=== PATIENT | male | born 1975 ===

== ENCOUNTER 2021-02-09 19:59 | Emergency (ER) | payer SELFPAY ==
[~2021-02-09] VITALS: Ht 172.7 cm; Wt 80.0 kg
[2021-02-09] MEDS ORDERED: NEOSPORIN OINT. PKT 1 PACKET ONE ×2 (20:43→20:50)
[2021-02-09 20:55] LABS: BASOPHILS % (AUTO) 1 % (0-1); EOSINOPHILS % (AUTO) 1 % (1-7); LYMPHOCYTES % (AUTO) 12 % (22-44); MEAN CORPUSCULAR HEMOGLOBIN 30.5 pg (27.5-34.5); MEAN CORPUSCULAR HGB CONC 34.1 g/dL (33.2-36.2); MEAN PLATELET VOLUME 8.1 fL (7.4-10.4); MONOCYTES % (AUTO) 6 % (2-9); NEUTROPHILS % (AUTO) 81 % (42-75); PLATELET COUNT 236 x10^3/uL (130-400); RED BLOOD COUNT 4.63 x10^6/uL (4.38-5.82); RED CELL DISTRIBUTION WIDTH 12.9 % (9.4-14.8)
[2021-02-09 20:59] LABS: MD NO
[2021-02-09 21:04] LABS: ANION GAP 11 mmol/L (5-15); CALCIUM 9.3 mg/dL (8.5-10.1); CHLORIDE 104 mmol/L (98-107)
[2021-02-09 22:29] VITALS: BP 119/69
== END 2021-02-09 22:42 | disposition home or self-care (01) ==
LOC: ED 21:48
DX: R10.84 Generalized abdominal pain (principal); M54.5 Low back pain; Z72.9 Problem related to lifestyle, unspecified
CPT/HCPCS: 36415; 71045; 80048; 85025; 99284

== ENCOUNTER 2021-07-01 03:19 | Inpatient (IN) | payer OTHER ==
[~2021-07-01] VITALS: Ht 172.7 cm; Wt 79.2 kg
--- NOTE | 2021-07-01 03:35 | NUR ---
HANNAH FROM [facility]. EMS REPORTS PATIENT HAS BEEN FEELING SICK FOR 2-3 DAYS NOW WITH FEVER AND BODY ACHES. PATIENT REPORTS HE HAS A COUGH WHICH PRODUCES A YELLOW/GREEN SPUTUM, HE HAS HAD A FEVER OFF AND ON, + N/V/D, BODY ACHES. PATIENT IS VACCINATED FOR COVID. UNKOWN IF HE HAS HAD AN EXPOSURE.
[2021-07-01] MEDS ORDERED: SODIUM CHLORIDE FLUSH 10ML SYR IVF ONE (04:00)
[2021-07-01] MEDS ORDERED: SODIUM CHLORIDE 0.9% 1,000ML IVBOLUS ONE (04:00)
--- NOTE | 2021-07-01 04:09 | NUR ---
RA SATURATION DROP TO 88-89% PATIENT PLACED ON 2L OXYGEN VIA NC
[2021-07-01] MEDS ORDERED: PLEASE ENTER ALLERGIES MC SCH (05:00)
[2021-07-01] MEDS ORDERED: CEFTRIAXONE 1,000 MG in DEXTROSE 5% 50 ML IVPB ONE (05:00)
[2021-07-01] MEDS ORDERED: AZITHROMYCIN 500 MG in SODIUM CHLORIDE 0.9% 250 ML IV ONE (05:00)
[2021-07-01 05:23] LABS: BASOPHILS % (AUTO) 0 % (0-1); EOSINOPHILS % (AUTO) 0 % (1-7); LYMPHOCYTES % (AUTO) 5 % (22-44); MEAN CORPUSCULAR HEMOGLOBIN 29.5 pg (27.5-34.5); MEAN CORPUSCULAR HGB CONC 33.8 g/dL (33.2-36.2); MEAN PLATELET VOLUME 8.4 fL (7.4-10.4); MONOCYTES % (AUTO) 4 % (2-9); NEUTROPHILS % (AUTO) 91 % (42-75); PLATELET COUNT 132 x10^3/uL (130-400); RED BLOOD COUNT 4.89 x10^6/uL (4.38-5.82); RED CELL DISTRIBUTION WIDTH 12.9 % (9.4-14.8)
[2021-07-01 05:33] LABS: ANION GAP 11 mmol/L (5-15); CHLORIDE 100 mmol/L (98-107); CREATININE 1.71 mg/dL (0.7-1.3)
--- NOTE | 2021-07-01 06:38 | NUR ---
Pt to be admitted to MEDICAL, room 368. Report called to WILLIAN.
--- NOTE | 2021-07-01 06:54 | NUR ---
GAVE REPORT TO AVELINA AHMADI
[2021-07-01] MEDS ORDERED: ALBUTEROL HFA 90 MCG/SPRAY INH PRN (07:00)
[2021-07-01] MEDS ORDERED: POLYETHYLENE GLYCOL 17 GM PACKET PO PRN (07:00)
[2021-07-01] MEDS ORDERED: ONDANSETRON 2MG/ML, 2ML IVPush PRN (07:00)
[2021-07-01] MEDS ORDERED: SENNA/DOCUSATE TABLET PO PRN (07:00)
[2021-07-01] MEDS ORDERED: ONDANSETRON ODT 4 MG PO PRN (07:00)
[2021-07-01] MEDS ORDERED: VANCOMYCIN PER PHARMACY MC PRN (07:00)
[2021-07-01] MEDS ORDERED: ACETAMINOPHEN 325 MG TABLET PO PRN (07:00)
[2021-07-01 07:10] LABS: HCT (SEDRATE) 42.7 % (39.2-51.8)
[2021-07-01 07:24] LABS: ALANINE AMINOTRANSFERASE 21 U/L (12-78); ALBUMIN 2.9 g/dL (3.4-5.0); BILIRUBIN, DIRECT 0.2 mg/dL (0.1-0.2)
[2021-07-01 07:30] LABS: ALKALINE PHOSPHATASE 83 U/L (45-117); BILIRUBIN,INDIRECT 0.4 mg/dL (0.0-2.0); BILIRUBIN,TOTAL 0.6 mg/dL (0.2-1.0); TOTAL PROTEIN 7.8 g/dL (6.4-8.2)
[2021-07-01 07:49] LABS: C-REACTIVE PROTEIN, QUANT > 19.00 mg/dL (0.02-0.49)
[2021-07-01] MEDS ORDERED: PHARMACOKINETIC MONITORING MC PRN (08:00)
[2021-07-01] MEDS ORDERED: VANCOMYCIN 2,000 MG in SODIUM CHLORIDE 0.9% 500 ML IV ONE (08:00)
[2021-07-01 08:15] VITALS: BP 102/66
[2021-07-01] MEDS ORDERED: DEXAMETHASONE 4 MG/ML, 1ML ONE (10:08)
[2021-07-01] MEDS: AZITHROMYCIN 500 MG TABLET PO SCH (10:21)
[2021-07-01] MEDS: ZINC SULFATE 220 MG CAPSULE PO SCH (10:21)
[2021-07-01] MEDS: THIAMINE 100MG TABLET PO SCH (10:22)
[2021-07-01] MEDS: DEXAMETHASONE 4 MG/ML, 5ML IVPush SCH (10:22)
[2021-07-01] MEDS: CHOLECALCIFEROL 5,000u TAB PO SCH (10:22)
[2021-07-01] MEDS: HEPARIN 5,000 UNITS/ML, 1ML SQ SCH ×2 (10:26→16:34)
[2021-07-01] MEDS: D5%-0.45NACL+KCL 20MEQ 1,000 ML IV SCH ×2 (10:39→20:04)
[2021-07-01] MEDS: CEFTRIAXONE 1,000 MG in DEXTROSE 5% 50 ML IVPB SCH (10:40)
[2021-07-01] MEDS: ASCORBIC ACID 500 MG TABLET PO SCH ×2 (10:40→16:34)
[2021-07-01 12:10] LABS: AMPHETAMINE SCREEN, URINE Negative (Negative); BARBITURATE SCREEN, URINE Negative (Negative); BENZODIAZEPINE SCREEN, URINE Negative (Negative); CANNABINOID SCREEN, URINE Negative (Negative); COCAINE SCREEN, URINE Negative (Negative); METHADONE SCREEN, URINE Negative (Negative); OPIATE SCREEN, URINE Negative (Negative)
[2021-07-01 12:43] VITALS: BP 106/66
[2021-07-01 19:52] VITALS: BP 116/68
[2021-07-01] MEDS: MELATONIN 5 MG TABLET PO SCH (20:04)
[2021-07-02 01:34] VITALS: BP 106/65
[2021-07-02] MEDS ORDERED: VANCOMYCIN 1,600 MG in SODIUM CHLORIDE 0.9% 250 ML IV SCH (02:00)
[2021-07-02] MEDS: HEPARIN 5,000 UNITS/ML, 1ML SQ SCH ×2 (02:01→08:31)
[2021-07-02 08:18] LABS: BASOPHILS % (AUTO) 0 % (0-1); EOSINOPHILS % (AUTO) 0 % (1-7); LYMPHOCYTES % (AUTO) 5 % (22-44); MEAN CORPUSCULAR HEMOGLOBIN 29.7 pg (27.5-34.5); MEAN CORPUSCULAR HGB CONC 33.9 g/dL (33.2-36.2); MEAN PLATELET VOLUME 8.7 fL (7.4-10.4); MONOCYTES % (AUTO) 6 % (2-9); NEUTROPHILS % (AUTO) 89 % (42-75); PLATELET COUNT 136 x10^3/uL (130-400); RED BLOOD COUNT 4.56 x10^6/uL (4.38-5.82); RED CELL DISTRIBUTION WIDTH 12.9 % (9.4-14.8)
[2021-07-02] MEDS ORDERED: DEXAMETHASONE 4 MG/ML, 1ML ONE (08:24)
[2021-07-02 08:26] LABS: ALANINE AMINOTRANSFERASE 19 U/L (12-78); ALBUMIN 2.5 g/dL (3.4-5.0); ANION GAP 6 mmol/L (5-15); CALCIUM 8.5 mg/dL (8.5-10.1); CHLORIDE 110 mmol/L (98-107); CREATININE 0.95 mg/dL (0.7-1.3)
[2021-07-02 08:28] LABS: ALKALINE PHOSPHATASE 74 U/L (45-117); BILIRUBIN,TOTAL 0.5 mg/dL (0.2-1.0); TOTAL PROTEIN 7.2 g/dL (6.4-8.2)
[2021-07-02] MEDS: ZINC SULFATE 220 MG CAPSULE PO SCH (08:30)
[2021-07-02] MEDS: AZITHROMYCIN 500 MG TABLET PO SCH (08:31)
[2021-07-02] MEDS: ASCORBIC ACID 500 MG TABLET PO SCH ×2 (08:31→15:53)
[2021-07-02] MEDS: THIAMINE 100MG TABLET PO SCH (08:31)
[2021-07-02] MEDS: CHOLECALCIFEROL 5,000u TAB PO SCH (08:31)
[2021-07-02] MEDS: DEXAMETHASONE 4 MG/ML, 5ML IVPush SCH (08:32)
[2021-07-02] MEDS: CEFTRIAXONE 1,000 MG in DEXTROSE 5% 50 ML IVPB SCH (08:33)
[2021-07-02 08:54] VITALS: BP 110/68
[2021-07-02] MEDS: ALBUTEROL HFA 90 MCG/SPRAY INH SCH ×3 (11:11→21:27)
[2021-07-02 13:32] VITALS: BP 118/64
[2021-07-02 14:09] VITALS: BP 102/63
[2021-07-02] MEDS: ENOXAPARIN 40 MG/0.4 ML SQ SCH (15:52)
[2021-07-02] MEDS: MELATONIN 5 MG TABLET PO SCH (21:00)
[2021-07-02 21:31] VITALS: BP 103/66
[2021-07-03 02:10] VITALS: BP 106/68
[2021-07-03] MEDS: ALBUTEROL HFA 90 MCG/SPRAY INH SCH ×4 (04:02→21:27)
[2021-07-03 05:58] LABS: BASOPHILS % (AUTO) 0 % (0-1); EOSINOPHILS % (AUTO) 0 % (1-7); LYMPHOCYTES % (AUTO) 7 % (22-44); MEAN CORPUSCULAR HEMOGLOBIN 29.9 pg (27.5-34.5); MEAN CORPUSCULAR HGB CONC 34.1 g/dL (33.2-36.2); MEAN PLATELET VOLUME 9.5 fL (7.4-10.4); MONOCYTES % (AUTO) 6 % (2-9); NEUTROPHILS % (AUTO) 88 % (42-75); PLATELET COUNT 183 x10^3/uL (130-400); RED CELL DISTRIBUTION WIDTH 12.8 % (9.4-14.8)
[2021-07-03 06:10] LABS: ALANINE AMINOTRANSFERASE 40 U/L (12-78); ALBUMIN 2.5 g/dL (3.4-5.0); ANION GAP 7 mmol/L (5-15); CALCIUM 9.1 mg/dL (8.5-10.1); CHLORIDE 110 mmol/L (98-107); CREATININE 0.89 mg/dL (0.7-1.3)
[2021-07-03 06:17] LABS: ALKALINE PHOSPHATASE 69 U/L (45-117); BILIRUBIN,TOTAL 0.4 mg/dL (0.2-1.0); TOTAL PROTEIN 6.7 g/dL (6.4-8.2)
[2021-07-03 07:45] VITALS: BP 104/65
[2021-07-03] MEDS ORDERED: ALBU18HF INH ×2 (08:01→08:27)
[2021-07-03] MEDS ORDERED: AZIT500T10 PO ×2 (08:01→08:27)
[2021-07-03] MEDS ORDERED: DEXA4TAB66 PO ×2 (08:01→08:27)
[2021-07-03] MEDS ORDERED: DEXAMETHASONE 4 MG/ML, 1ML ONE (09:31)
[2021-07-03] MEDS: ZINC SULFATE 220 MG CAPSULE PO SCH (09:42)
[2021-07-03] MEDS: ASCORBIC ACID 500 MG TABLET PO SCH ×2 (09:42→16:47)
[2021-07-03] MEDS: AZITHROMYCIN 500 MG TABLET PO SCH (09:42)
[2021-07-03] MEDS: CEFTRIAXONE 1,000 MG in DEXTROSE 5% 50 ML IVPB SCH (09:42)
[2021-07-03] MEDS: THIAMINE 100MG TABLET PO SCH (09:43)
[2021-07-03] MEDS: CHOLECALCIFEROL 5,000u TAB PO SCH (09:43)
[2021-07-03] MEDS: DEXAMETHASONE 4 MG/ML, 5ML IVPush SCH (09:43)
[2021-07-03 15:13] VITALS: BP 111/65
[2021-07-03] MEDS: ENOXAPARIN 40 MG/0.4 ML SQ SCH (16:47)
[2021-07-03 20:55] VITALS: BP 101/64
[2021-07-03] MEDS: MELATONIN 5 MG TABLET PO SCH (21:27)
[2021-07-04 02:00] VITALS: BP 100/67
[2021-07-04] MEDS: ALBUTEROL HFA 90 MCG/SPRAY INH SCH ×5 (03:30→21:49)
[2021-07-04] MEDS ORDERED: DEXAMETHASONE 4 MG/ML, 1ML ONE (08:13)
[2021-07-04] MEDS: AZITHROMYCIN 500 MG TABLET PO SCH (08:26)
[2021-07-04] MEDS: DEXAMETHASONE 4 MG/ML, 5ML IVPush SCH (08:26)
[2021-07-04] MEDS: THIAMINE 100MG TABLET PO SCH (08:26)
[2021-07-04] MEDS: ASCORBIC ACID 500 MG TABLET PO SCH ×2 (08:26→16:52)
[2021-07-04] MEDS: CHOLECALCIFEROL 5,000u TAB PO SCH (08:27)
[2021-07-04] MEDS: ZINC SULFATE 220 MG CAPSULE PO SCH (08:27)
[2021-07-04 08:53] VITALS: BP 106/69
[2021-07-04] MEDS: CEFTRIAXONE 1,000 MG in DEXTROSE 5% 50 ML IVPB SCH (10:33)
[2021-07-04 13:26] VITALS: BP 113/70
[2021-07-04] MEDS: ENOXAPARIN 40 MG/0.4 ML SQ SCH (16:52)
[2021-07-04 20:13] VITALS: BP 115/69
[2021-07-04] MEDS: MELATONIN 5 MG TABLET PO SCH (21:15)
[2021-07-05 00:53] VITALS: BP 110/66
[2021-07-05] MEDS: ZINC SULFATE 220 MG CAPSULE PO SCH (09:33)
[2021-07-05] MEDS: ASCORBIC ACID 500 MG TABLET PO SCH (09:33)
[2021-07-05] MEDS: THIAMINE 100MG TABLET PO SCH (09:33)
[2021-07-05] MEDS: DEXAMETHASONE 4 MG/ML, 5ML IVPush SCH (09:33)
[2021-07-05] MEDS: CHOLECALCIFEROL 5,000u TAB PO SCH (09:33)
[2021-07-05] MEDS: ALBUTEROL HFA 90 MCG/SPRAY INH SCH ×2 (09:34→15:30)
[2021-07-05] MEDS: CEFTRIAXONE 1,000 MG in DEXTROSE 5% 50 ML IVPB SCH (09:34)
[2021-07-06] MEDS ORDERED: DEXAMETHASONE 4 MG TABLET PO SCH (07:30)
== END 2021-07-05 16:30 | disposition home or self-care (01) | DRG 871 ==
LOC: ED 07:22 → 3N 07:36 → ED 09:03 → 3N 09:04
PROVIDERS: ADMIT Internal Medicine; ATTEND Hospitalist
DX: A41.89 Other specified sepsis (principal); J12.82 Pneumonia due to coronavirus disease 2019; J96.01 Acute respiratory failure with hypoxia; N17.0 Acute kidney failure with tubular necrosis; U07.1 COVID-19; J45.901 Unspecified asthma with (acute) exacerbation; Z86.14 Personal history of Methicillin resistant Staphylococcus aureus infection; Z59.0 Homelessness
CPT/HCPCS: 36415; 71045; 80048; 80053; 80076; 80307; 82728; 83605; 83615; 84145; 85025; 85379; 85651; 86140; 87040; 87070; 87081; 87147; 87205; 93005; 96361; 96365; 96375; G0378; J0456; J0696; J1100; J1644; J1650; J3370; U0005; J3480; J7030; J7040; J7050; U0003